=== PATIENT | female | born 1990 | race Caucasian/White ===

== ENCOUNTER 2024-12-27 15:20 | Outpatient (AMB) | payer OTHER, SELFPAY ==
--- NOTE | 2024-12-27 15:23 | A.OFFPC_ITS ---
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 She requests a physical exam. She is seeing a therapist for anxiety and depression. 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 She has a 4-year-old daughter. Her is with male twins. She had an ER visit 2 months ago for a panic attack. She endorses panic attacks once a week that are more mild than the previous episode. She has had anxiety and depression for about 8 years. She has not taken medications for this. It disrupts sleep. She is also having some difficulties in her marriage right now. Anxiety affects her communication. She feels more irritable. She has difficulty focusing. She plays out scenarios in her head before they even happen and becomes upset about them. No SI or HI. No hallucinations. No substance abuse. Her blood pressure is prehypertensive today. She does not have a history of hypertension. She is referred for an annual OBGYN visit. Flu vaccine administered today. Patient wears glasses. Eye exam is not up-to-date. 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 It made her very anxious. She looked away for a few minutes in her vision returned to normal. No headache, dizziness, syncope, numbness, weakness, slurred speech, facial droop. She is not getting frequent headaches. ROS: Constitutional: No unexplained weight loss, fever, chills, fatigue or night sweats. Eyes: No loss of vision, double vision, eye pain, eye redness, eye discharge. ENT: No hearing loss, sneezing, congestion, runny nose or sore throat. Respiratory: No shortness of breath, cough or sputum production. Cardiovascular: No chest pain, chest pressure or chest discomfort. No palpitations or pedal edema. Gastrointestinal: No anorexia, nausea, vomiting or diarrhea. No abdominal pain or blood in stool. Genitourinary: No dysuria, hematuria, urinary frequency. Neurologic: No headache, dizziness, syncope, unilateral weakness, ataxia, numbness or tingling in the extremities. Musculoskeletal: No muscle pain, back pain, joint pain or swelling. Hematologic/Lymphatics: No bleeding or bruising. No painful lymph nodes. Skin: No rash or itching. No changing moles or freckles. No new growths. Endocrine: No cold or heat intolerance. No polyuria or polydipsia. Psychiatric: see HPI Physical exam: Constitutional: Alert, in no distress. Head: Normocephalic. Eyes: Pupils are equal, round and reactive to light. Extraocular muscles intact. Ear, Nose and Throat: Canals clear. TMs normal. Normal nasal mucosa. No nasal discharge. No oral lesions. Neck: Supple, Full range of motion. No lymphadenopathy. No palpable thyroid masses. Respiratory: Clear to auscultation. Cardiovascular: S1 S2 regular. No murmurs. No carotid bruits. Gastrointestinal: Abdomen soft, non-tender, non-distended. Normal bowel sounds. No palpable masses. Neurologic: No focal neurological deficits. Symmetric patellar reflexes. Moves all extremities spontaneously. Sensation intact bilaterally. Skin: No rashes Musculoskeletal: No gross deformities. Normal range of motion. Extremities: Warm and well perfused. No clubbing, cyanosis or edema. Intact peripheral pulses bilaterally. Psychiatric: Normal mood and affect [facility] Medical History (Updated 12/27/24 @ 17:57 by GENA Lagos) Routine physical examination Blurry vision Hyperlipidemia Screening for cardiovascular condition MRSA (methicillin resistant Staphylococcus aureus) High cholesterol Anxiety and depression Surgical History (Updated 12/27/24 @ 15:49 by Magalie Dos Santos MA) No pertinent past surgical history Family History (Updated 12/27/24 @ 15:52 by Magalie Dos Santos MA) Mother HTN (hypertension) High cholesterol Father HTN (hypertension) High cholesterol Substance abuse Maternal Grandmother HTN (hypertension) High cholesterol Diabetes Paternal Grandmother HTN (hypertension) High cholesterol Diabetes Cardiovascular disease Substance abuse Maternal Grandfather HTN (hypertension) Paternal Grandfather HTN (hypertension) Esophagus cancer Substance abuse Social History (Updated 12/27/24 @ 15:48 by Magalie Dos Santos MA) Household Members: Spouse and Children Both parents involved: No Caregiver staying overnight: No Housing: House Are you a primary care process manager to a significant other at home: Yes Do you presently have visiting nurse or other home services: No 75 years or older and lives alone: No Alcohol intake: current Alcohol intake frequency: a few times a month Patient Tobacco Use Status: Never used Tobacco e-Cigarette/Vaping Use: Never Used Second Hand Smoke Exposure: No Current occupational status: employed 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 1. Little interest or pleasure in doing things: not at all 2. Feeling down, depressed, or hopeless: several days 3. Trouble falling or staying asleep, or sleeping too much: several days 4. Feeling tired or having little energy: several days 5. Poor appetite or overeating: several days 6. Feeling bad about yourself - or that you are a failure or have let yourself or your family down: several days 7. Trouble concentrating on things, such as reading the newspaper or watching television: several days 8. Moving or speaking so slowly that other people could have noticed. Or the opposite - being so fidgety or restless that you have been moving around a lot more than usual: several days 9. Thoughts that you would be better off or of hurting yourself in some way: not at all Total score: 7 Depression Screening Interpretation: Positive Depression Screening Follow-up: New Medication prescribed Depression Screening Done: Yes 56947 - PHQ-9 Billing: Yes Source: Developed by Drs. Demetris Marquez, Maura Howell, Jaylon Cortes and colleagues, with an educational berna from [employer]. Thrive Questionnaire Date Thrive assessed: 12/27/24 I am a: Patient What is your living situation today?: I have a steady place to live Within the past 12 months, did the food you bought not last and you didn't have the money to get more?: Never true Within the past 12 months, did you worry whether your food would run out before you got money to buy more?: Never true Do you have trouble paying for medicines?: No Do you have trouble getting transportation to medical appointments?: No Do you have trouble paying your heating and electricity bill?: No Do you have trouble taking care of your child, family member or friend?: No Do you have trouble with day-to-day activities such as bathing, preparing meals, shopping, managing finances, etc.?: No Are you currently unemployed and looking for a job?: No Are you interested in more education?: No Please select the resources that you would like help with: None Currently or been in a relationship where the following occur: No concerns reported THRIVE Score: 0 AUDIT C Alcohol Use Questionnaire (AUDIT-C) 1. How often do you have a drink containing alcohol?: 2-3 times a week 2. How many drinks containing alcohol do you have on a typical day when you are drinking?: 1 or 2 3. How often do you have six or more drinks on one occasion?: Never Total Score: 3 RUBIN-7 AMB Questionnaire RUBIN-7 Date RUBIN - 7 assessed: 12/27/24 Feeling nervous, anxious, or on edge: 3 = Nearly every day Not being able to stop or control worryin = Nearly every day Worrying too much about different things: 3 = Nearly every day Trouble relaxin = Nearly every day Being so restless that it is hard to sit still: 1 = Several days Becoming easily annoyed or irritable: 1 = Several days Feeling afraid as if something awful might happen: 1 = Several days Total RUBIN-7 score (0-4 normal; 5-9 mild; 10-14 moderate; 15-21 severe): 15 Source: Developed by Drs. Demetris Marquez, Maura Howell, Jaylon Cortes and colleagues, with an educational berna from [employer] RUBIN-7 Assessment Billing RUBIN-7 Assessment Tool: RUBIN-7 Assessment 74460 Physical exam (Primary Care) Vital Signs: Last Vital Signs Temp 97.1 F 12/27/24 15:45 Pulse 88 12/27/24 15:45 Resp 13 12/27/24 15:45 BP 135/80 12/27/24 15:45 Pulse Ox 99 12/27/24 15:45 Oxygen Delivery Method Room Air 12/27/24 15:45 BMI result Body Mass Index 38.2 Tobacco/Smoking Status: Tobacco use Status Tobacco use date assessed 12/27/24 12/27/24 15:47 Patient Tobacco Use Status Never used Tobacco 12/27/24 15:48 e-Cigarette/Vaping Use Never Used 12/27/24 15:48 PHQ-9: PHQ-9 Score PHQ-9: Total score 7 12/27/24 16:35 Depression Screening Interpretation: Positive Depression Screening Follow-up: New Medication prescribed Thrive Assessment: Date of Thrive Assessment Date Thrive assessed 12/27/24 12/27/24 15:24 Currently or been in a relationship where the following occur: No concerns reported Office Procedures Flu Questionnaire Does the patient have a severe egg allergy?: No Does the patient have severe life threatening allergies?: No Does the patient have a fever or illness today?: No Has the patient ever had Guillain-Brookesmith Syndrome?: No Has the patient ever had any past reaction to a flu shot?: No Immunizations Fluarix Triv [id number] (PF) 45 mcg (15 mcg x 3)/0.5 mL IM syringe Performing Provider: GENA Lagos Performing Location: [facility] Administered by: Cassandra Kan RN on 12/27/24 16:35 Dose Route Admin Location Dispensed Lot Number Expiration Date [facility] Rn Child 0.5 mL IM Left Deltoid 0.5 mL [id number] 04/01/25 [id number] [employer] VIS Given Date VIS Provided VIS Publication Date 12/27/24 Single Vaccine 21 Eligibility Eligibility Date Funding Source Not [facility] Eligible 12/27/24 Private Coding Level of Care Code New Pt Level 3 (14371) New Pt Prev Care 18-39yr(70544 Diagnoses Routine physical examination Z00.00 Blurry vision H53.8 Hyperlipidemia E78.5 Anxiety and depression F41.9; F32.A Screening for cardiovascular condition Z13.6 Additional Codes RUBIN-7 Assessment Billing - RUBIN-7 Assessment Tool: RUBIN-7 Assessment 58042 ([id number]) PHQ-9 - 08180 - PHQ-9 Billing: Yes ([id number]) Assessment & Plan Assessment & Plan (1) Routine physical examination: Code(s): Z00.00 - Encounter for general adult medical examination without abnormal findings Category: Medical Plan: Patient is seen today for a routine physical. As part of this visit we reviewed the following issues, which are considered and essential part of preventative health in this age group: - Breast Cancer screening - Annual Patient Navigator exam - Cholesterol screening - Osteoporosis prevention including calcium/vitamin D intake, weight bearing exercise & smoking cessation - Nutritional and exercise counseling - Counseling of injury prevention including fire prevention, smoke alarms and seat belt usage - Screening for depression - Education about skin cancer - Recommendations about immunizations - Recommendation of an eye exam - Screening for substance abuse (2) Blurry vision: Code(s): H53.8 - Other visual disturbances Category: Medical Plan: 2 transient episodes of blurry vision while focusing on a screen. This may have been secondary to eye strain. She has no neurological deficits or chronic hea daches. Discussed we could have a low threshold for ordering MRI if she develops recurrent episodes with vision changes or other neurological symptoms. I do recommend she see an eye doctor and referred her. (3) Hyperlipidemia: Code(s): E78.5 - Hyperlipidemia, unspecified Category: Medical Plan: Check fasting lipid profile. (4) Anxiety and depression: Code(s): F41.9 - Anxiety disorder, unspecified; F32.A - Depression, unspecified Category: Medical Plan: She is currently in therapy, and she would like to start medications. Discussed SSRIs and Wellbutrin. She would like to start with Wellbutrin though she does know this is not FDA approved for anxiety. Side effects and black box warning reviewed. I prescribed hydroxyzine 25 mg every 8 hours as needed for anxiety/panic attack. We also discussed benzodiazepines, but we opted to avoid controlled substances for now. Discussed hydroxyzine can cause sedation and not to drive or operate heavy machinery after taking this medication. (5) Screening for cardiovascular condition: Code(s): Z13.6 - Encounter for screening for cardiovascular disorders Category: Medical Plan Follow up in 4 weeks for a medication check. Orders: Orders Lipid Panel Today E78.5 - Hyperlipidemia, unspecified, Z13.6 - Encounter for screening for cardiovascular disorders Complete Blood Count no Diff Today E78.5 - Hyperlipidemia, unspecified, Z13.6 - Encounter for screening for cardiovascular disorders TSH reflex Free T4 Today E78.5 - Hyperlipidemia, unspecified, Z13.6 - Encounter for screening for cardiovascular disorders Influenza [id number] Immunization Today Z23 - Encounter for immunization Comprehensive Met. 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
[2024-12-27 15:45] VITALS: BP 135/80; PULSE 88; RESP 13; TEMP 36.2; O2SAT 99; BMI 38.2
== END 2024-12-27 16:29 | disposition home or self-care (01) ==
LOC: HO.HMCFM 15:20
PROVIDERS: PCP Physician Assistant Medical; Visit Provider Physician Assistant Medical
DX: Z00.00 Encounter for general adult medical examination without abnormal findings (principal); H53.8 Other visual disturbances; E78.5 Hyperlipidemia, unspecified; F41.9 Anxiety disorder, unspecified; F32.A Depression, unspecified; Z13.6 Encounter for screening for cardiovascular disorders; Z23 Encounter for immunization

== ENCOUNTER → 2024-12-27 15:20 | Outpatient (BNVA) | payer OTHER, SELFPAY | PROVIDERS: PCP Physician Assistant Medical; Visit Provider Physician Assistant Medical | DX: Z00.00 Encounter for general adult medical examination without abnormal findings (principal); F41.9 Anxiety disorder, unspecified; F32.A Depression, unspecified; F41.0 Panic disorder [episodic paroxysmal anxiety]; H53.8 Other visual disturbances; E78.5 Hyperlipidemia, unspecified; E66.9 Obesity, unspecified; Z23 Encounter for immunization; Z68.38 Body mass index [BMI] 38.0-38.9, adult | CPT/HCPCS: 90471; 90656; 96127; 99202; 99385 ==

== ENCOUNTER 2025-02-21 14:56 | Outpatient (AMB) | payer OTHER, SELFPAY ==
--- OUTSIDE RECORDS SUMMARY | 2025-02-21 14:59 | XMS_ITS ---
Author Organization [facility] Address [address] [address] Care Team Providers Care Cut Order Hand Name Role Phone DAHILA, SELMA Unavailable [phone] REASON FOR VISIT Right Heel pain. Patient states she can not put weight on it Encounters Encounter Location Date Provider Diagnosis [facility] [address] [address] 05/01/2024 SELMA VILLAGOMEZ Plan Of Treatment No Information Progress Notes * Karena GARCIADOB:1990 ([age] yo F)Acc No.[id number]:05/01/2024 Consult note Patient:?NORMA Karena Provider:?Selma Bear DPM :1990???Age:33 Y???Sex:Female D ate:05/01/2024 Phone: Address:[address] [place] [id number] Subjective: * Chief Complaints: * ???1. Right Heel pain. Patie nt states she can not put weight on it. * Medical History:? Objective: * Vitals:? Therapeutic Interventions: Assessment: Plan: * Treatment: * Billing Information: * Visit Code:? * Procedure Codes:? * Electronic signature of BOBBY VILLAGOMEZ D.P.M. on 02/21/2025 at 02:59 PM EDT Sign off status: Pending * Provider:?Selma Bear DPM Date:?05/01 Generated for Erin reyna/Nathen/Bhaktiitting on:?02/21/2025 02:59 PM EDT
--- NOTE | 2025-02-21 15:04 | A.OFFPC_ITS ---
Vital Signs 02/21/25 15:10 Height 5 ft 6 in Weight 237 lb 4 oz BMI 38.3 BP 122/64 Blood Pressure Location Rt brachial Position Sitting Pulse 92 Pulse Source Pulse Oximeter Temp 98.6 F Temp Source Temporal Artery Scan Pulse Oximetry (%) 97 Oxygen Delivery Method Room Air Intake Visit Reasons: anxiety med check Intake Note: Karena presents in the office today for her anxiety. Allergies No Known Allergies Allergy (Verified 02/21/25 15:06) Tobacco use date assessed: 02/21/25 Dental Screening Dental Screen Date: 02/21/25 Did you have a dental visit in the last 12 months?: Yes Did you have a dental problem in the last 6 months where you did not have access to dental care?: No Was dental information given to patient?: Patient has dentist HPI HPI Comments History of Present Illness Details This is a 34-year-old female with a past medical history of hyperlipidemia and anxiety with depression presenting for a medication review and a blood pressure check. Anxiety with depression-she is taking bupropion XL 150 mg daily. She does not feel like it has made a significant impact on her symptoms. She is seeing a therapist. 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 She has a 4-year-old daughter, Shilpi. Her gave to their twin boys 2 weeks ago, Carlos and Sasha. Anxiety is disrupting sleep and impacting communication, and she has had some difficulties in her marriage. She also endorses difficulty with irritability. She plays out scenarios in her head before they even happen and becomes upset about them. No SI, HI or hallucinations. No substance abuse. She has a history of panic attacks, but she has not had 1 recently. She has a prescription for hydroxyzine. Her blood pressure was prehypertensive at her physical in December, but today it is normal. ROS: Constitutional: No unexplained weight loss, fever, chills, fatigue or night sweats. Psychiatric: see HPI Physical exam: Respiratory: Clear to auscultation. Cardiovascular: S1 S2 regular. No murmurs. Psychiatric: Normal mood and affect [facility] Medical History (Updated 12/27/24 @ 17:57 by GENA Lagos) Routine physical examination Blurry vision Hyperlipidemia Screening for cardiovascular condition MRSA (methicillin resistant Staphylococcus aureus) High cholesterol Anxiety and depression Surgical History (Updated 12/27/24 @ 15:49 by Magalie Dos Santos MA) No pertinent past surgical history Family History Mother HTN (hypertension) High cholesterol Father HTN (hypertension) High cholesterol Substance abuse Maternal Grandmother HTN (hypertension) High cholesterol Diabetes Paternal Grandmother HTN (hypertension) High cholesterol Diabetes Cardiovascular disease Substance abuse Maternal Grandfather HTN (hypertension) Paternal Grandfather HTN (hypertension) Esophagus cancer Substance abuse Social History (Updated 02/21/25 @ 15:07 by Sarahi Arboleda MA) Household Members: Spouse and Children Both parents involved: No Caregiver staying overnight: No Housing: House Are you a primary child care group leader to a significant other at home: Yes Do you presently have visiting nurse or other home services: No 75 years or older and lives alone: No Alcohol intake: current Alcohol intake frequency: a few times a month Patient Tobacco Use Status: Never used Tobacco e-Cigarette/Vaping Use: Never Used Second Hand Smoke Exposure: No service: No Current occupational status: employed 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 1. Little interest or pleasure in doing things: not at all 2. Feeling down, depressed, or hopeless: several days 3. Trouble falling or staying asleep, or sleeping too much: more than half the days 4. Feeling tired or having little energy: several days 5. Poor appetite or overeating: several days 6. Feeling bad about yourself - or that you are a failure or have let yourself or your family down: several days 7. Trouble concentrating on things, such as reading the newspaper or watching television: nearly every day 8. Moving or speaking so slowly that other people could have noticed. Or the opposite - being so fidgety or restless that you have been moving around a lot more than usual: several days 9. Thoughts that you would be better off or of hurting yourself in some way: not at all Total score: 10 Depression Screening Interpretation: Positive Depression Screening Done: Yes 63238 - PHQ-9 Billing: Yes Source: Developed by Drs. Demetris Marquez, Jaylon Guillen and colleagues, with an educational berna from [employer]. Thrive Questionnaire Date Thrive assessed: 02/21/25 I am a: Patient What is your living situation today?: I have a steady place to live Within the past 12 months, did the food you bought not last and you didn't have the money to get more?: Never true Within the past 12 months, did you worry whether your food would run out before you got money to buy more?: Never true Do you have trouble paying for medicines?: No Do you have trouble getting transportation to medical appointments?: No Do you have trouble paying your heating and electricity bill?: No Do you have trouble taking care of your child, family member or friend?: No Do you have trouble with day-to-day activities such as bathing, preparing meals, shopping, managing finances, etc.?: No Are you currently unemployed and looking for a job?: No Are you interested in more education?: No Please select the resources that you would like help with: None Currently or been in a relationship where the following occur: No concerns reported THRIVE Score: 0 AUDIT C Alcohol Use Questionnaire (AUDIT-C) 1. How often do you have a drink containing alcohol?: Monthly or less 2. How many drinks containing alcohol do you have on a typical day when you are drinking?: 1 or 2 3. How often do you have six or more drinks on one occasion?: Never Total Score: 1 Score Reviewed/Action Taken: No RUBIN-7 AMB Questionnaire RUBIN-7 Date RUBIN - 7 assessed: 02/21/25 Feeling nervous, anxious, or on edge: 1 = Several days Not being able to stop or control worryin = Several days Worrying too much about different things: 1 = Several days Trouble relaxin = Several days Being so restless that it is hard to sit still: 1 = Several days Becoming easily annoyed or irritable: 3 = Nearly every day Feeling afraid as if something awful might happen: 1 = Several days Total RUBIN-7 score (0-4 normal; 5-9 mild; 10-14 moderate; 15-21 severe): 9 Source: Developed by Drs. Demetris Marquez, Jaylon Guillen and colleagues, with an educational berna from [employer]. RUBIN-7 Assessment Billing RUBIN-7 Assessment Tool: RUBIN-7 Assessment 04493 Physical exam (Primary Care) Vital Signs: Last Vital Signs Temp 98.6 F 02/21/25 15:10 Pulse 92 02/21/25 15:10 BP 122/46 L 02/21/25 15:10 Pulse Ox 97 02/21/25 15:10 Oxygen Delivery Method Room Air 02/21/25 15:10 BMI result Body Mass Index 38.3 Tobacco/Smoking Status: Tobacco use Status Tobacco use date assessed 12/27/24 02/21/25 15:06 Patient Tobacco Use Status Never used Tobacco 02/21/25 15:07 e-Cigarette/Vaping Use Never Used 02/21/25 15:07 Depression Screening Interpretation: Positive Thrive Assessment: Date of Thrive Assessment Date Thrive assessed 12/27/24 02/21/25 15:06 Currently or been in a relationship where the following occur: No concerns r eported Coding Level of Care Code Est Pt Level 3 (42058) Complex EM visit Add On G2211 Diagnoses Anxiety and depression F41.9; F32.A Additional Codes RUBIN-7 Assessment Billing - RUBIN-7 Assessment Tool: RUBIN-7 Assessment 43748 ([id number]) PHQ-9 - 08451 - PHQ-9 Billing: Yes ([id number]) Assessment & Plan Assessment & Plan (1) Anxiety and depression: Code(s): F41.9 - Anxiety disorder, unspecified; F32.A - Depression, unspecified Category: Medical Plan: Increase bupropion XL to 300 mg every morning. Black box warning and side effects reviewed. If this is ineffective we will try a different medication. She has a prescription for hydroxyzine, but she has not required it. Encouraged to continue therapy. Plan Follow up in 4 weeks for a medication check. Medications: New bupropion HCl XL 300 mg PO QAM 30 tabs 0RF Discontinued bupropion HCl XL (Wellbutrin XL) Discontinued Reason: Doctor's Order 150 mg PO QAM 30 tabs 1RF
[2025-02-21 15:10] VITALS: BP 122/64; PULSE 92; TEMP 37; O2SAT 97; BMI 38.3
== END 2025-02-21 15:26 | disposition home or self-care (01) ==
LOC: HO.HMCFM 14:57
PROVIDERS: PCP Physician Assistant Medical; Visit Provider Physician Assistant Medical
DX: F41.9 Anxiety disorder, unspecified (principal); F32.A Depression, unspecified

== ENCOUNTER → 2025-02-21 14:56 | Outpatient (BNVA) | payer OTHER, SELFPAY | PROVIDERS: PCP Physician Assistant Medical; Visit Provider Physician Assistant Medical | DX: F41.9 Anxiety disorder, unspecified (principal); F32.A Depression, unspecified; Z79.899 Other long term (current) drug therapy | CPT/HCPCS: 96127; 99212 ==

== ENCOUNTER 2025-04-08 15:37 | Outpatient (AMB) | payer OTHER, SELFPAY ==
--- OUTSIDE RECORDS SUMMARY | 2024-05-01 07:00 | XMS_ITS ---
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 Patient states she can not put weight on it Encounters Encounter Location Date Provider Diagnosis [facility] [address] [address] 05/01/2024 WAYNE VILLAGOMEZ Plan Of Treatment No Information Progress Notes * Karena GARCIADOB:1990 ([age] yo F)Acc No.[id number]:05/01/2024 Consult note Patient: Karena RONQUILLO Provider: Carli Bear DPLouann :1990 A ge:33 Y S ex:Female Date:05/01/2024 Phone: Address:[address] [place] [id number] Subjective: * Chief Complaints: * 1 . Right Heel pain. Patient states she can not put weight on it. * Medical History: Objective: * Vitals: Therapeutic Interventions: Assessment: Plan: * Treatment: * Billing Information: * Visit Code: * Procedure Codes: * Electronic signature of BOBBY VILLAGOMEZ D.P.M. on 04/08/2025 at 03:47 PM EDT Sign off status: Pending * Provider: Carli Bear DPM Date: 05/01/2024 Generated for Erin reyna/Nathen/Bhaktiitting on: 04/08/2025 03:47 PM EDT
--- NOTE | 2025-04-08 15:31 | MHC.PC.OV ---
Intake Visit Reasons: telehealth or in person lab/med review Intake Note: Karena presents for a telehealth follow up to her labs and mediation Allergies No Known Allergies Allergy (Verified 04/08/25 15:33) Tobacco use date assessed: 04/08/25 Dental Screening Dental Screen Date: 04/08/25 Did you have a dental visit in the last 12 months?: Yes Did you have a dental problem in the last 6 months where you did not have access to dental care?: No Was dental information given to patient?: Patient has dentist HPI HPI Comments History of Present Illness Details This is a 34-year-old female with a past medical history of hyperlipidemia and anxiety with depression presenting for a medication check and lab result review. Her labs show hyperlipidemia with LDL 191, TG 189, HDL 55. She endorses a family history of HLD. Anxiety with depression-she is taking bupropion XL 300 mg daily. Endorses 50-60% improvement on the dose. She's not sure the last month was the best trial because she found out her is having an affair, and they are filing for divorce. She has good support from her friends, family and therapist. They share a 4 year old daughter, Shilpi, and infant twin boys, Carlso and Sasha. She uses Hydroxyzine as needed for panic attacks. ROS: Constitutional: No unexplained weight loss, fever, chills, fatigue or night sweats. Psychiatric: see HPI PFS Medical History (Updated 04/08/25 @ 20:58 by GENA Lagos) Routine physical examination Blurry vision Hyperlipidemia Screening for cardiovascular condition MRSA (methicillin resistant Staphylococcus aureus) High cholesterol Anxiety and depression Surgical History (Updated 12/27/24 @ 15:49 by Magalie Dos Santos MA) No pertinent past surgical history Family History Mother HTN (hypertension) High cholesterol Father HTN (hypertension) High cholesterol Substance abuse Maternal Grandmother HTN (hypertension) High cholesterol Diabetes Paternal Grandmother HTN (hypertension) High cholesterol Diabetes Cardiovascular disease Substance abuse Maternal Grandfather HTN (hypertension) Paternal Grandfather HTN (hypertension) Esophagus cancer Substance abuse Social History (Updated 04/08/25 @ 15:34 by Sarahi Arboleda MA) Household Members: Spouse and Children Both parents involved: No Caregiver staying overnight: No Housing: House Are you a primary residential care officer to a significant other at home: Yes Do you presently have visiting nurse or other home services: No 75 years or older and lives alone: No Alcohol intake: current Alcohol intake frequency: a few times a month Patient Tobacco Use Status: Never used Tobacco e-Cigarette/Vaping Use: Never Used Second Hand Smoke Exposure: No Use of substances other than those prescribed or required for medical reasons: No service: No Current occupational status: employed 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 Demetris Marquez, Maura Howell, Jaylon Cortes and colleagues, with an educational berna from [employer]. Physical exam (Primary Care) Tobacco/Smoking Status: Tobacco use Status Tobacco use date assessed 04/08/25 04/08/25 15:35 Patient Tobacco Use Status Never used Tobacco 04/08/25 15:34 e-Cigarette/Vaping Use Never Used 04/08/25 15:34 Thrive Assessment: Date of Thrive Assessment Date Thrive assessed 02/21/25 04/08/25 15:32 Telehealth Telehealth Telehealth Platform: Telephone Location of provider rendering services: practice address Location of patient: address on file Patient Identification confirmed using: Name, : Yes Telehealth method: voice only Patient verbally consented to treatment: Yes Patient verbally consented to billing insurance company: Yes Patient informed of any privacy concerns related to visit: Yes Minutes spent on Phone/Video with Pt.: 13 Coding Level of Care Code Tele Est Pt Level 3 (80713) Diagnoses Anxiety and depression F41.9; F32.A Mixed hyperlipidemia E78.2 Hyperlipidemia type: mixed hyperlipidemia Assessment & Plan Assessment & Plan (1) Anxiety and depression: Code(s): F41.9 - Anxiety disorder, unspecified; F32.A - Depression, unspecified Category: Medical Plan: She would like to reassess in 1 month. Continue bupropion XL to 300 mg every morning. Black box warning and side effects reviewed. She has a prescription for hydroxyzine, but she has not required it. Encouraged to continue therapy. (2) Hyperlipidemia: Code(s): E78.5 - Hyperlipidemia, unspecified Category: Medical Qualifiers: Hyperlipidemia type: mixed hyperlipidemia Qualified Code(s): E78.2 - Mixed hyperlipidemia Plan: We discussed starting a statin, but she would like to try lifestyle modifications for three months and recheck the lipid profile. Cholesterol goals: LDL cholesterol: Less than 100 (Limit consumption of red meat and animal fats, fried foods and saturated fats to decrease this number. Avoid tobacco use) HDL cholesterol: More than 40 (Eat more nuts and fish (if no allergies) and exercise regularly to increase this number) Triglycerides: Less than 150 (Limit alcohol use, carbohydrates and concentrated sugars to decrease this number) Moderate intensity exercise for thirty minutes per day for at least 5 days per week is recommended. Plan Follow up in 4 weeks for a medication check. Orders: Orders Lipid Panel 3 Months E78.5 - Hyperlipidemia, unspecified
== END 2025-04-08 16:27 | disposition home or self-care (01) ==
LOC: HO.HMCFM 15:37
PROVIDERS: PCP Physician Assistant Medical; Visit Provider Physician Assistant Medical
DX: F41.9 Anxiety disorder, unspecified (principal); F32.A Depression, unspecified; E78.2 Mixed hyperlipidemia